=== PATIENT | female | born 2000 | race Two or more races ===

== ENCOUNTER 2018-12-10 22:49 | Emergency (ER) | payer OTHER ==
[~2018-12-10] VITALS: Ht 167.6 cm; Wt 63.5 kg
[2018-12-11 02:20] VITALS: BP 115/70
[2018-12-11] MEDS ORDERED: IBUPROFEN 800 MG TAB PO ONE (02:45)
[2018-12-11] MEDS ORDERED: HYDROcodone-ACET 5/325MG TAB PO ONE (02:45)
== END 2018-12-11 03:32 | disposition home or self-care (01) ==
LOC: ER 22:51
DX: S82.435A Nondisplaced oblique fracture of shaft of left fibula, initial encounter for closed fracture (principal); W19.XXXA Unspecified fall, initial encounter; Y93.51 Activity, roller skating (inline) and skateboarding; Y99.8 Other external cause status; Y92.89 Other specified places as the place of occurrence of the external cause
CPT/HCPCS: 29515; 73610

== ENCOUNTER 2018-12-11 13:34 | Emergency (ER) | payer OTHER ==
[~2018-12-11] VITALS: Ht 167.6 cm; Wt 63.5 kg
[2018-12-11 13:39] VITALS: BP 130/59
[2018-12-11] MEDS ORDERED: IBUPROFEN 800 MG TAB PO ONE (14:30)
== END 2018-12-11 14:38 | disposition home or self-care (01) ==
LOC: ER 13:35
DX: S82.435D Nondisplaced oblique fracture of shaft of left fibula, subsequent encounter for closed fracture with routine healing (principal); Z76.0 Encounter for issue of repeat prescription; X58.XXXD Exposure to other specified factors, subsequent encounter